=== PATIENT | female | born 1960 | race Two or more races ===

== ENCOUNTER 2018-02-26 20:29 | Emergency (ER) | payer OTHER ==
[2018-02-26] MEDS ORDERED: Albuterol/Ipratropium NEB.SOL* Albuterol 2.5 MG/Ipratropium 0.5 MG 3 ML INH ONE (20:59)
[2018-02-26] MEDS ORDERED: methylPREDNISolone 125 MG* 2 ML VIAL IV ONE (20:59)
[2018-02-26] MEDS ORDERED: predniSONE TAB* 20 MG PO ONE (21:08)
[2018-02-26] MEDS ORDERED: Benzonatate CAP* 100 MG PO ONE (21:15)
--- NOTE | 2018-02-26 22:01 | RAD ---
Indication: Cough, shortness of breath. 2 views of the chest including dual energy PA views demonstrates no mediastinal shift. Heart is of normal size and configuration. Lung salter appear clear. IMPRESSION: No active cardiopulmonary disease is noted.
--- NOTE | 2018-02-26 22:06 | ED ---
Respiratory - HPI Summary HPI Summary: Complains of productive cough, SOB, sore throat, bilateral ear pain, chest pain with cough, headache with cough 4 days. Denies fever, N/V/D, abdominal pain, change in urine or BM. Medical history is hypothyroid, asthma. - History of Current Complaint Chief Complaint: EDUpperRespComplaint Stated Complaint: DIFF. BREATHING/COUGH Time Seen by Provider: 02/26/18 20:55 Hx Obtained From: Patient Onset/Duration: Gradual Onset Timing: Constant Initial Severity: Mild Pain Intensity: 7 Sputum Amount: Small Sputum Color: Yellow Aggravating Factor(s): Deep Breaths Alleviating Factor(s): Nothing Associated Signs and Symptoms: SOB, Wheezing, Chest Pain with Cough - Allergy/Home Medications Allergies/Adverse Reactions: Allergies Allergy/AdvReac Type Severity Reaction Status Date / Time erythromycin base Allergy Rash Verified 02/26/18 20:38 [place] Allergy Severe See Comment Uncoded 02/26/18 20:39 PMH/Surg Hx/FS Hx/Imm Hx Endocrine/Hematology History: Denies: Hx Diabetes Cardiovascular History: Reports: Hx Hypertension - ON MEDS Respiratory History: Reports: Hx Asthma History: Denies: Hx Dialysis Neurological History: Reports: Other Neuro Impairments/Disorders - anxiety, depression Denies: Hx CVA - Surgical History Surgery Procedure, Year, and Place: appy, nasal surgery, total hysterectomy - Immunization History Date of Tetanus Vaccine: Unk Date of Influenza Vaccine: Fall 2012 Infectious Disease History: Yes Infectious Disease History: Denies: Traveled Outside the [place] in Last 30 Days - Social History Alcohol Use: None Substance Use Type: Reports: None Smoking Status (MU): Former Smoker Review of Systems Constitutional: Negative Eyes: Negative Positive: Sore Throat, Ear Ache Positive: Chest Pain Positive: Shortness Of Breath, Cough Gastrointestinal: Negative Genitourinary: Negative Musculoskeletal: Negative Skin: Negative Positive: Headache Psychological: Normal All Other Systems Reviewed And Are Negative: Yes Physical Exam Triage Information Reviewed: Yes Vital Signs On Initial Exam: Initial Vitals Temp Pulse Resp BP Pulse Ox 97.3 F 76 22 131/106 98 02/26/18 20:30 02/26/18 20:30 02/26/18 20:30 02/26/18 20:30 02/26/18 20:30 Vital Signs Reviewed: Yes Appearance: Positive: Well-Appearing Skin: Positive: Warm Head/Face: Positive: Normal Head/Face Inspection Eyes: Positive: Normal ENT: Positive: Pharyngeal erythema, TMs normal Neck: Positive: Supple Respiratory/Lung Sounds: Positive: Clear to Auscultation Cardiovascular: Positive: Normal Abdomen Description: Positive: Nontender Musculoskeletal: Positive: Normal Neurological: Positive: Normal Psychiatric: Positive: Normal AVPU Assessment: Alert - Colleen Coma Scale Best Eye Response: 4 - Spontaneous Best Motor Response: 6 - Obeys Commands Best Verbal Response: 5 - Oriented Coma Scale Total: 15 Diagnostics - Vital Signs Vital Signs Temp Pulse Resp BP Pulse Ox 02/26/18 21:21 67 20 98 02/26/18 20:56 73 96 02/26/18 20:55 71 117/74 95 02/26/18 20:30 97.3 F 76 22 131/106 98 - Laboratory Lab Results: Lab Results 02/26/18 02/26/18 Range/Units 21:23 21:38 Influenza A (Rapid) Negative (Negative) Influenza B (Rapid) Negative (Negative) Group A Strep Rapid Negative (Negative) Result Diagrams: 02/26/18 21:57 02/26/18 21:57 Lab Statement: Any lab studies that have been ordered have been reviewed, and results considered in the medical decision making process. - Radiology cxr Xray Interpretation: No Acute Changes Radiology Interpretation Completed By: Radiologist - EKG 1 Cardiac Rate: NL EKG Rhythm: Sinus Rhythm ST Segment: Non-Specific Ectopy: None EKG Interpretation: prolonged [place] Disposition - Course Course Of Treatment: Complains of productive cough, SOB, sore throat, bilateral ear pain, chest pain with cough, headache with cough 4 days. Denies fever, N/V /D, abdominal pain, change in urine or BM. Medical history is hypothyroid, asthma. Vital signs within normal limits. Chest x-ray negative. EKG normal. Labs unremarkable. Patient has inhaler at home. Rx for prednisone. Follow-up with primary care. - Diagnoses Provider Diagnoses: Bronchitis Discharge - Sign-Out/Discharge Documenting (check all that apply): Discharge/Admit/Transfer - Discharge Plan Condition: Stable Disposition: HOME Prescriptions: predniSONE TAB* [Deltasone 20 MG TAB*] 40 mg PO DAILY 5 Days #5 tab Patient Education Materials: Acute Bronchitis (ED) Referrals: Helio Okeefe II, MD [Primary Care Provider] - Additional Instructions: Use inhaler as necessary. Follow-up with primary care. Return to the ED for any new or worsening symptoms - Billing Disposition and Condition Condition: STABLE Disposition: Home
[2018-02-26 22:08] LABS: ABS Basophils 0 10^3/ul (0-0.2); ABS Eosinophils 0.3 10^3/ul (0-0.6); ABS Lymphocytes 1.9 10^3/ul (1.0-4.8); ABS Monocytes 0.6 10^3/ul (0-0.8); ABS Neutrophils 2.9 10^3/ul (1.5-7.7); ABS Nucleated RBC 0 10^3/ul; Eosinophil % 4.8 % (0-6); Hematocrit 34 % (35-47); Hemoglobin 11.6 g/dl (12.0-16.0); Lymphocyte % 33.6 % (25-47); Mean Corpuscular HGB Conc 34 g/dl (31-36); Mean Corpuscular Hemoglobin 30 pg (27-31); Mean Corpuscular Volume 88 fL (80-97); Mean Platelet Volume 7.6 um3 (7.4-10.4); Nucleated Red Blood Cells % 0.1; Platelet Count 124 10^3/ul (150-450); Red Blood Count 3.86 10^6/ul (4.00-5.40); Red Cell Distribution Width 14 % (10.5-15); White Blood Count 5.6 10^3/ul (3.5-10.8)
[2018-02-26 22:26] LABS: EGFR Non-African American 71.1 (>60)
[2018-02-26 23:01] VITALS: BP 138/62
== END 2018-02-26 23:00 | disposition home or self-care (01) ==
LOC: ED 20:29
DX: J45.909 Unspecified asthma, uncomplicated (principal); E03.9 Hypothyroidism, unspecified; I10 Essential (primary) hypertension; Z87.891 Personal history of nicotine dependence; Z88.3 Allergy status to other anti-infective agents; Z79.899 Other long term (current) drug therapy
CPT/HCPCS: 36415; 71046; 80053; 83605; 85025; 86140; 87651; 93005; 96374; 99283; A9270-GY; J7512